=== PATIENT | female | born 1990 | race African-American/Black ===

== ENCOUNTER 2017-09-21 19:19 | Emergency (ER) | payer OTHER ==
[~2017-09-21] VITALS: Ht 157.5 cm; Wt 85.1 kg
[2017-09-21 19:27] VITALS: BP 138/84
== END 2017-09-21 20:40 | disposition home or self-care (01) ==
LOC: ER 19:19
DX: J02.9 Acute pharyngitis, unspecified (principal); F12.10 Cannabis abuse, uncomplicated
CPT/HCPCS: 87070; 87430; 99283; 99284

== ENCOUNTER 2017-09-23 09:14 | Emergency (ER) | payer MEDICAID, OTHER ==
[~2017-09-23] VITALS: Ht 157.5 cm; Wt 84.4 kg
[2017-09-23] MEDS ORDERED: AMOXICILLIN (09:17)
[2017-09-23] MEDS ORDERED: MOTRIN (09:17)
[2017-09-23] MEDS ORDERED: PHENOL/SODIUM PHENOLATE 1.4% SRPAY 177ML MM ONE (09:45)
[2017-09-23] MEDS ORDERED: KETOROLAC 30MG/ML VIAL IM ONE (09:45)
[2017-09-23 11:05] VITALS: BP 113/71
== END 2017-09-23 11:15 | disposition home or self-care (01) ==
LOC: ER 09:52
DX: J02.9 Acute pharyngitis, unspecified (principal); F17.200 Nicotine dependence, unspecified, uncomplicated; F12.10 Cannabis abuse, uncomplicated; Z98.890 Other specified postprocedural states
CPT/HCPCS: 96372; 99283; J1885

== ENCOUNTER 2017-09-23 18:10 | Emergency (ER) | payer MEDICAID, OTHER ==
[~2017-09-23] VITALS: Ht 157.5 cm; Wt 83.0 kg
[~2017-09-23 18:10] MED LIST: AMOXICILLIN; MOTRIN
[2017-09-23] MEDS ORDERED: ACETAMINOPHEN 325MG TABLET PO ONE (19:15)
[2017-09-23] MEDS ORDERED: DEXAMETHASONE 10 MG/ML VIAL IM ONE (19:15)
[2017-09-23] MEDS ORDERED: AMOXICILLIN/POTASSIUM CLAVULANATE 875/125MG TAB PO ONE (19:15)
[2017-09-23] MEDS ORDERED: KETOROLAC 30MG/ML VIAL IM ONE (19:15)
[2017-09-23 20:52] VITALS: BP 114/77
== END 2017-09-23 20:56 | disposition home or self-care (01) ==
LOC: ER 18:10
DX: J02.9 Acute pharyngitis, unspecified (principal); R50.81 Fever presenting with conditions classified elsewhere; F17.200 Nicotine dependence, unspecified, uncomplicated
CPT/HCPCS: 87070; 87430; 96372; 99284; J1100; J1885